=== PATIENT | female | born 1990 | race Hispanic/Latino ===

== ENCOUNTER 2021-03-19 06:51 | Emergency (ER) | payer MEDICAID ==
[2021-03-19] MEDS ORDERED: SODIUM CHLORIDE 0.9% 500ML 500 ML IV ONE (07:26)
[2021-03-19 07:30] LABS: APPEARANCE,URINE Cloudy (CLEAR); BILIRUBIN,URINE Negative (NEGATIVE); COLOR,URINE Yellow (YELLOW); GLUCOSE, URINE (UA) Negative (NEGATIVE); KETONES,URINE Negative (NEGATIVE); LEUKOCYTE ESTERASE ,URINE Moderate (NEGATIVE); NITRATE,URINE Positive (NEGATIVE); OCCULT BLOOD,URINE Negative (NEGATIVE); PROTEIN,URINE POS 1+ mg/dL (NEGATIVE)
[2021-03-19 07:32] LABS: BASOPHILS % (AUTO) 0.2 % (0.0-5.0); EOSINOPHILS % (AUTO) 0.1 % (0.0-8.0); HEMATOCRIT 39.6 % (36-48); LYMPHOCYTES % (AUTO) 13.6 % (21.0-51.0); MEAN CORPUSCULAR HEMOGLOBIN 28.9 pg (27.0-33.0); MEAN CORPUSCULAR HGB CONC 33.8 g/dL (32.0-36.0); MEAN CORPUSCULAR VOLUME 85.5 fL (79-99); NEUTROPHILS % (AUTO) 79.8 % (40.0-77.0); PLATELET COUNT (AUTO) 264 K/uL (130-400); RED BLOOD CELL COUNT(AUTO) 4.63 MIL/uL (4.00-5.50); WHITE BLOOD COUNT (AUTO) 8.7 K/uL (4.8-10.8)
[2021-03-19 07:37] LABS: HCG,QUAL RESULT NEGATIVE (NEGATIVE)
[2021-03-19 07:38] LABS: AMPHET/METH SCREEN,URINE NEGATIVE (NEGATIVE); BARBITURATE SCREEN, URINE NEGATIVE (NEGATIVE); BENZODIAZEPINES SCREEN,URINE NEGATIVE (NEGATIVE); CANNABINOID SCREEN,URINE NEGATIVE (NEGATIVE); COCAINE SCREEN,URINE NEGATIVE (NEGATIVE); OPIATE SCREEN,URINE NEGATIVE (NEGATIVE); PHENCYCLIDINE SCREEN,URINE NEGATIVE (NEGATIVE)
[2021-03-19 07:39] LABS: BACTERIA,URINE Many /HPF (None Seen); SQUAMOUS EPITHELIAL CELL,UR Moderate /HPF (0-2)
[2021-03-19 07:46] LABS: BILIRUBIN,TOTAL 0.8 mg/dL (0.2-1.0); CREATININE 0.7 mg/dL (0.5-1.5); POTASSIUM 4.1 mmol/L (3.5-5.1); TOTAL PROTEIN, SERUM 8.2 g/dL (6.0-8.3)
== END 2021-03-19 09:06 | disposition home or self-care (01) ==
LOC: EDH 06:51
DX: E86.0 Dehydration (principal); T42.6X5A Adverse effect of other antiepileptic and sedative-hypnotic drugs, initial encounter
CPT/HCPCS: 36415; 80053; 80305; 81001; 81025; 85025; 87077; 87088; 87186; 96360; 99283; J7040

== ENCOUNTER → 2024-01-13 | Outpatient (CLI) | payer MEDICAID | END | disposition home or self-care (01) | LOC: SHCH 08:25 | PROVIDERS: ATTEND Internal Medicine Cardiovascular Disease | DX: R00.2 Palpitations (principal); I47.10 Supraventricular tachycardia, unspecified | CPT/HCPCS: 93306 ==

== ENCOUNTER 2024-11-15 08:14 | Day surgery (SDC) | payer MEDICAID ==
[2024-11-15] VITALS (11 sets, daily range): BP systolic 112–129; BP diastolic 66–77; PULSE 73–96; RESP 15–20; TEMP 97.3–97.9
[~2024-11-15] VITALS: Ht 144.8 cm; Wt 83.9 kg
[2024-11-15] MEDS ORDERED: CLON0.5T23 PO (09:15)
[2024-11-15] MEDS ORDERED: OMEP20CA12 PO (09:15)
[2024-11-15] MEDS ORDERED: OLAN20TA82 PO (09:15)
[2024-11-15] MEDS ORDERED: CYAN-35 PO (09:15)
[2024-11-15] MEDS ORDERED: TRAZ-187 PO (09:15)
[2024-11-15] MEDS ORDERED: CHLO50 PO (09:15)
[2024-11-15] MEDS ORDERED: METF-446 PO (09:15)
[2024-11-15] MEDS ORDERED: AMMO385C4 TP (09:15)
[2024-11-15] MEDS ORDERED: DIVA500T2 PO (09:15)
[2024-11-15] MEDS ORDERED: [UNRECOGNIZED DRUG - CODE] PO (09:15)
[2024-11-15] MEDS: 0.9%NACL 1000ML 1,000 ML IV ONE (09:58)
[2024-11-15] MEDS ORDERED: LIDOCAINE PF 100MG/5ML (2%) SYRINGE 5ML ONE (11:00)
[2024-11-15] MEDS ORDERED: proPOFol 10 MG/ML 20ML VIAL IV ONE (11:00)
== END 2024-11-15 12:35 | disposition home or self-care (01) ==
LOC: SUH 08:14 → DAH 08:14 → SUH 12:35 → DAH 12:35
PROVIDERS: ATTEND Student in an Organized Health Care Education/Training Program
DX: R10.11 Right upper quadrant pain (principal); K29.50 Unspecified chronic gastritis without bleeding; K21.9 Gastro-esophageal reflux disease without esophagitis; K31.89 Other diseases of stomach and duodenum; F32.A Depression, unspecified; F20.9 Schizophrenia, unspecified; E11.9 Type 2 diabetes mellitus without complications; Z90.49 Acquired absence of other specified parts of digestive tract; Z79.899 Other long term (current) drug therapy
CPT/HCPCS: 43239; 82948 ×2; 81025; 88305; 88312; J7030 ×2; J2003; J2704; A4620; A4215 ×2; A4223; A4222; A4221; A4663; A4606; J3490